=== PATIENT | female | born 1975 | race African-American/Black ===

== ENCOUNTER 2019-06-10 15:12 | Emergency (ER) | payer BC ==
[~2019-06-10] VITALS: Ht 152.4 cm; Wt 117.9 kg
[~2019-06-10 15:12] MED LIST: BACTRIM DS TAB1 EACH PO; LIDODERM 5%1 PATC1 TRANSDERM; NOHOMEMEDICATIONS; NORFLEX100 MG PO; PROAIR HFA8.5 GM; PROMETHAZINE-C120 ML PO; TRAMADOL 50 MG50 MG PO
[2019-06-10] MEDS ORDERED: CLARITIN-D 121 EAC1 PO (16:27)
[2019-06-10] MEDS ORDERED: IBUPROFEN 600600 M1 PO (16:27)
[2019-06-10 16:35] VITALS: BP 162/94
== END 2019-06-10 16:35 | disposition home or self-care (01) ==
LOC: ER 15:12
DX: J06.9 Acute upper respiratory infection, unspecified (principal)